=== PATIENT | female | born 1960 | race Caucasian/White ===

== ENCOUNTER 2022-06-26 09:12 | Day surgery (SDC) | payer BC ==
[~2022-06-26] VITALS: Ht 162.6 cm; Wt 62.1 kg
[2022-06-26] MEDS ORDERED: NITROGLYCERIN 0.4 MG/TAB BOTTLE ONE ×2 (10:28→11:12)
[2022-06-26] MEDS ORDERED: IOHEXOL-350 100 ML VIAL IV ONE (11:12)
[2022-06-26] MEDS ORDERED: METOPROLOL TARTRATE INJ 5 MG/5 ML AMPUL ONE (11:12)
[2022-06-26] MEDS ORDERED: CT SWABBABLE VALVE TRANS SET 1 EA INFUS.SET MC ONE (11:13)
[2022-06-26] MEDS ORDERED: IV NS 0.9% 250 ML IV ONE (11:13)
[2022-06-26] MEDS: METOPROLOL TARTRATE INJ 5 MG/5 ML AMPUL IVP PRN ×2 (11:45→11:50)
[2022-06-26] MEDS ORDERED: NITROGLYCERIN 0.4 MG/TAB BOTTLE SL PRN (12:00)
[2022-06-26 12:03] VITALS: BP 137/75
== END 2022-06-26 12:15 | disposition short-term general hospital (02) ==
LOC: CT 09:12
PROVIDERS: ATTEND Internal Medicine Interventional Cardiology
DX: R07.9 Chest pain, unspecified (principal); K76.89 Other specified diseases of liver; I25.10 Atherosclerotic heart disease of native coronary artery without angina pectoris
CPT/HCPCS: 75574; J3490; J7050; Q9967